=== PATIENT | male | born 1955 | race Caucasian/White ===

== ENCOUNTER 2023-04-12 12:49 | Emergency (ER) | payer BC, OTHER ==
[~2023-04-12] VITALS: Ht 182.9 cm; Wt 72.6 kg
[2023-04-12 13:14] VITALS: BP 131/88; PULSE 76; RESP 14; TEMP 98.1; O2SAT 99
[2023-04-12] MEDS: MORPHINE SULFATE 4 MG/ML SYR IM ONE (14:58)
[2023-04-12 18:40] VITALS: BP 136/66; PULSE 69; RESP 16; TEMP 99; O2SAT 99
[2023-04-13] MEDS ORDERED: PROPOFOL 200 MG/20 ML VIAL IV ONE (08:08)
[2023-04-13] MEDS ORDERED: MIDAZOLAM 2 MG/2 ML VIAL ONE (08:09)
[2023-04-13] MEDS ORDERED: fentaNYL citrate 0.05 MG/ML VIAL ONE (08:09)
== END 2023-04-12 18:41 | disposition home or self-care (01) ==
LOC: MED 12:49
DX: S62.616A Displaced fracture of proximal phalanx of right little finger, initial encounter for closed fracture (principal); S62.304A Unspecified fracture of fourth metacarpal bone, right hand, initial encounter for closed fracture; S42.402A Unspecified fracture of lower end of left humerus, initial encounter for closed fracture; S02.2XXA Fracture of nasal bones, initial encounter for closed fracture; S09.90XA Unspecified injury of head, initial encounter; Z79.899 Other long term (current) drug therapy; W01.198A Fall on same level from slipping, tripping and stumbling with subsequent striking against other object, initial encounter; Y93.89 Activity, other specified; Y92.89 Other specified places as the place of occurrence of the external cause; Y99.8 Other external cause status
CPT/HCPCS: 29105; 29125; 70450; 70486; 73080; 73130; 90471; 90715; 96372; 99285; J2270; J2250; J2704; J3010

== ENCOUNTER 2023-04-21 11:48 | Emergency (ER) | payer BC ==
[~2023-04-21] VITALS: Ht 180.3 cm; Wt 86.2 kg
[2023-04-21 11:58] VITALS: BP 135/75; PULSE 83; RESP 16; TEMP 97.9; O2SAT 98
[2023-04-21] MEDS ORDERED: BACITRACIN OINT 500 UNITS/GM PKT TP ONE (13:19)
[2023-04-21] MEDS ORDERED: CEPH-588 PO ×2 (13:34→18:09)
[2023-04-21] MEDS ORDERED: ACET-8905 PO ×2 (13:34→18:09)
[2023-04-21] MEDS: BACITRACIN OINT 500 UNITS/GM PKT TP ONE (13:48)
[2023-04-21] MEDS: MORPHINE SULFATE 4 MG/ML SYR IM ONE (13:54)
[2023-04-21 14:33] VITALS: BP 140/68; PULSE 79; RESP 16; TEMP 97.9; O2SAT 100
== END 2023-04-21 14:17 | disposition home or self-care (01) ==
LOC: MED 11:48
DX: S51.812A Laceration without foreign body of left forearm, initial encounter (principal); L08.9 Local infection of the skin and subcutaneous tissue, unspecified; I10 Essential (primary) hypertension; E78.00 Pure hypercholesterolemia, unspecified; Z98.890 Other specified postprocedural states; Z79.899 Other long term (current) drug therapy; X58.XXXA Exposure to other specified factors, initial encounter; Y92.89 Other specified places as the place of occurrence of the external cause; Y93.89 Activity, other specified; Y99.8 Other external cause status
CPT/HCPCS: 96372; 99283; J2270